=== PATIENT | female | born 1970 | race African-American/Black ===

== ENCOUNTER 2016-10-17 18:09 | Emergency (ER) | payer MEDICAID ==
[~2016-10-17] VITALS: Ht 172.7 cm; Wt 85.3 kg
[~2016-10-17 18:09] MED LIST: ALBUTEROL SULF8.5 GM INH; AMOXICILLIN500 MG ORAL; AZITHROMYCIN250 MG ORAL; CYCLOBENZAPRINE10 MG ORAL; DEBROX15 M1 OT; HYDROCODON-ACE1 EA15 ORAL; PSEUDOEPHEDRINE30 MG PO; TRAMADOL HCL50 MG ORAL
[2016-10-17 18:30] VITALS: BP 136/91
[2016-10-17] MEDS ORDERED: GUAIFENESIN-CO118 M1 ORAL (19:38)
[2016-10-17] MEDS ORDERED: ZITHROMAX250 MG ORAL (19:38)
[2016-10-17 19:55] VITALS: BP 147/64
--- NOTE | 2016-10-18 11:10 | Diagnostic Imaging Report ---
Indication: Chest Pain Comparison: None A single view chest radiograph was obtained. Findings: Cardiomediastinal appearance is within normal limits for age. Pulmonary vascularity is appropriate. The diaphragmatic contour is smooth and costophrenic angles are sharp. No pleural effusions are identified. The bones are unremarkable. Cervical fusion hardware noted Impression: No acute findings
--- NOTE | 2016-10-19 07:21 | Emergency Room Report ---
History of Present Illness General Chief Complaint: Upper Respiratory Illness Source: Patient Present Illness HPI Patient is a 46-year-old female presented after increased cough and difficulty breathing. Patient had been sick for approximately one week. Patient had the previously had fever and subsequently got better and then began having fever again. The patient reported having some productive cough. She denied severe shortness of breath or severe chest pain. She had not been vomiting or having any diarrhea. Allergies: Coded Allergies: No Known Allergies (Unverified , 08/12/14) Patient History Now: No Reviewed Nursing Documentation: PMH: Agreed, PSxH: Agreed Nursing Documentation-PMH Past Medical History: No History, Except For Review of Systems All Other Systems: negative except mentioned in HPI Physical Exam Vital Signs Date Time Temp Pulse Resp B/P Pulse Ox O2 Delivery O2 Flow Rate FiO2 10/17/16 18:22 98.4 96 15 136/91 98 Room Air General Appearance: well appearing, no apparent distress, alert, GCS 15 Head: normocephalic, atraumatic ENT: hearing grossly normal, normal voice Neck: full range of motion, supple Respiratory: no respiratory distress, rhonchi, speaking full sentences Cardiovascular #1: regular rate, rhythm, no edema, no gallop, no JVD Gastrointestinal: non tender, soft, no mass, no organomegaly Musculoskeletal: normal inspection, digits/nails normal, no calf tenderness Neurologic: alert, oriented x3, responsive, java tech III-XII nml as tested, normal gait Psychiatric: normal inspection, judgement/insight normal, mood/affect normal Skin: no rash Medical Decision Making Diagnostic Impression: Primary Impression: Pneumonia ER Course Patient presented for cough. Differential diagnosis included but was not limited to bronchitis, pneumonia, pulmonary embolism, pericarditis, asthma, foreign body. A chest x-ray one view interpreted by me showed a right lung lower lobe infiltrate there is normal cardiac size there were no pleural effusions. Patient was given prescription for oral antibiotics due to pneumonia which is likely secondary infection from a previous viral infection. The patient is advised to follow up with primary care doctor in 1-2 days. Patient is advised to return if any worsening condition or if any changes in status that are concerning. Last Vital Signs Date Time Temp Pulse Resp B/P Pulse Ox O2 Delivery O2 Flow Rate FiO2 10/17/16 19:55 94 16 147/64 99 Room Air 10/17/16 18:30 98.4 Status: improved Disposition: HOME, SELF-CARE Condition: Stable Scripts Guaifenesin/Codeine Phos* (ROBITUSSIN AC*) 118 Ml Liquid 5 ML ORAL Q6H Y for For Cough, #118 ML 0 Refills Prov: Luis Carlos Carrillo 10/17/16 Azithromycin* (ZITHROMAX*) 250 Mg Tablet 250 MG ORAL DAILY, #6 TAB 0 Refills Take two tables once daily for 1 day, then one tablet once daily for 4 days. Prov: Luis Carlos Carrillo 10/17/16 Referrals: NON PHYSICIAN (PCP) Patient Instructions: Community-Acquired Pneumonia, Adult Luis Carlos Carrillo Oct 19, 2016 07:21
== END 2016-10-17 19:55 | disposition home or self-care (01) ==
LOC: EMR 19:50
DX: J18.9 Pneumonia, unspecified organism (principal)
CPT/HCPCS: 71010; 81025; 99283

== ENCOUNTER 2016-10-26 10:20 | Emergency (ER) | payer MEDICAID ==
[~2016-10-26] VITALS: Ht 172.7 cm; Wt 83.9 kg
[~2016-10-26 10:20] MED LIST changes: +GUAIFENESIN-CO118 M1 ORAL; +ZITHROMAX250 MG ORAL
[2016-10-26] MEDS ORDERED: LEVAQUIN500 MG ORAL (11:29)
[2016-10-26] MEDS ORDERED: PROMETH-CODEIN 65 ML PO (11:29)
[2016-10-26 11:30] VITALS: BP 148/95
[2016-10-26 11:46] VITALS: BP 148/95
--- NOTE | 2016-10-27 07:44 | Emergency Room Report ---
History of Present Illness General Chief Complaint: Upper Respiratory Illness Source: Patient Present Illness HPI Patient present with complaints of flulike symptoms ongoing since September Patient reports increased cough and congestion Runny nose Fore head and facial pressure Denies any chest pain denies any neck pain or photophobia Patient has some mild bodyaches Denies any rash Denies any recent travel Allergies: Coded Allergies: No Known Allergies (Unverified , 08/12/14) Patient History Past Medical History: see triage record Pertinent Family History: none Last Menstrual Period: last week Now: No Reviewed Nursing Documentation: PMH: Agreed, PSxH: Agreed Nursing Documentation-PMH Past Medical History: No History, Except For Review of Systems All Other Systems: negative except mentioned in HPI Physical Exam Vital Signs Date Time Temp Pulse Resp B/P Pulse Ox O2 Delivery O2 Flow Rate FiO2 10/26/16 10:33 98.4 91 20 153/107 100 Room Air Sp02 EP Interpretation: reviewed, normal General Appearance: well appearing, no apparent distress Head: normocephalic, atraumatic Eyes: bilateral eye EOMI, bilateral eye PERRL ENT: hearing grossly normal, TMs + canals normal, uvula midline, pharyngeal erythema, other - Clear rhinorrhea Neck: full range of motion, supple, no meningismus, no bony tend Respiratory: lungs clear, normal breath sounds, no rhonchi, no respiratory distress, no retraction, no accessory muscle use Cardiovascular #1: normal peripheral pulses, regular rate, rhythm, no edema, no gallop, no JVD, no murmur Gastrointestinal: normal bowel sounds, non tender, soft, no mass, no organomegaly, non-distended, no guarding, no hernia, no pulsatile mass, no rebound Musculoskeletal: normal inspection Neurologic: oriented x3, responsive, asset liability analyst III-XII nml as tested, motor strength/ tone normal, sensory intact Psychiatric: mood/affect normal Skin: normal color, no rash, warm/dry, palpation normal Lymphatic: normal inspection, no adenopathy Medical Decision Making Diagnostic Impression: Primary Impression: Upper respiratory infection ER Course Patient's findings appear to be in line with flulike symptoms patient's respirations are appropriate has URI component At this time the patient will have symptomatic attempt for outpatient care Last Vital Signs Date Time Temp Pulse Resp B/P Pulse Ox O2 Delivery O2 Flow Rate FiO2 10/26/16 11:46 98.2 85 16 148/95 100 Room Air Status: unchanged Disposition: HOME, SELF-CARE Condition: Stable Scripts Promethazine HCl/Codeine (Prometh-Codein 6.25-10 mg/5 ml) 5 Ml Syrup 5 ML PO QHS for 5 Days, ML Prov: JANEEN KAMARA D.O. 10/26/16 Levofloxacin* (LEVAQUIN*) 500 Mg Tablet 500 MG ORAL DAILY for 7 Days, TAB Prov: JANEEN KAMARA D.O. 10/26/16 Referrals: [facility],REFERRING (PCP) Patient Instructions: Upper Respiratory Infection, Adult Additional Instructions: Patient is provided with the discharge instructions notified to follow up with primary doctor in the next 2-3 days otherwise return to the er with any worsening symptoms. JANEEN KAMARA D.O. Oct 27, 2016 07:44
== END 2016-10-26 11:46 | disposition home or self-care (01) ==
LOC: EMR 11:20
DX: J06.9 Acute upper respiratory infection, unspecified (principal)
CPT/HCPCS: 99282

== ENCOUNTER 2018-02-09 10:42 | Emergency (ER) | payer MEDICAID ==
[~2018-02-09] VITALS: Ht 170.2 cm; Wt 86.2 kg
[~2018-02-09 10:42] MED LIST changes: +LEVAQUIN500 MG ORAL; +PROMETH-CODEIN 65 ML PO
[2018-02-09] MEDS ORDERED: BUPROPION XL300 MG ORAL (10:57)
[2018-02-09 11:07] LABS: APPEARANCE,URINE CLEAR; BILIRUBIN, URINE NEGATIVE (NEGATIVE); COLOR,URINE PALE YELLOW; GLUCOSE, URINE (UA) NEGATIVE (NEGATIVE); KETONES,URINE NEGATIVE (NEGATIVE); LEUKOCYTE ESTERASE ,URINE NEGATIVE (NEGATIVE); NITRITE,URINE NEGATIVE (NEGATIVE); PH,URINE 6 (4.5-8.0); PROTEIN,URINE NEGATIVE (NEGATIVE); UROBILINOGEN,URINE NORMAL MG/DL (0.0-1.0)
--- NOTE | 2018-02-09 11:08 | Emergency Room Report ---
History of Present Illness General Chief Complaint: Female Urogenital Problems Source: Patient Present Illness HPI Patient presents with 3 weeks of dysuria. She had 3 pills of amoxicillin and took the last one last night. She's also been taking Azo. She still has dysuria and decreased urine flow. She's been increasing her he fluid intake. She felt feverish last night. She also complains about congestion and ear pain worse on the right. There is also itching there was some decreased hearing. She denies any sore throat or cough. Her last period was ending yesterday. It was normal for her. She doesn't believe she is . She denies any vaginal discharge. The patient is recovering from spine fusion surgery and is still on disability. She is still receiving physical therapy. Allergies: Coded Allergies: No Known Allergies (Unverified , 08/12/14) Patient History Past Medical History: see triage record Past Surgical History: other - Spine fusion Social History: Denies: smoking Social History Narrative disabled from spine surgery Now: No Reviewed Nursing Documentation: PMH: Agreed; PSxH: Agreed Nursing Documentation-PMH Past Medical History: No History, Except For Review of Systems All Other Systems: negative except mentioned in HPI Physical Exam Vital Signs Date Time Temp Pulse Resp B/P (MAP) Pulse Ox O2 Delivery O2 Flow Rate FiO2 02/09/18 10:49 98.5 86 18 151/100 98 Room Air 98.4 Sp02 EP Interpretation: reviewed, normal General Appearance: well appearing, no apparent distress Head: normocephalic, atraumatic Eyes: bilateral eye normal inspection, bilateral eye PERRL ENT: hearing grossly normal, normal pharynx, normal voice, other - mild erythema R TM Neck: full range of motion, supple Respiratory: no respiratory distress, speaking full sentences Gastrointestinal: normal inspection Genitourinary: no CVA tenderness, adnexa normal, ext genitalia/vag normal, os closed - nodular cervix, min d/c, uterus normal - no CMT, other - bladder tenderness Musculoskeletal: back normal, no calf tenderness Neurologic: alert, normal gait, grossly normal Psychiatric: mood/affect normal Skin: no rash Medical Decision Making Diagnostic Impression: Primary Impression: Dysuria Additional Impression: Otitis media Qualified Codes: H66.001 - Acute suppurative otitis media without spontaneous rupture of ear drum, right ear ER Course Patient presents with dysuria. She's recently taken amoxicillin. This may sterilize the urine. She needs to have a urinalysis and test done. She'll be treated with Keflex which will cover both the ears and the urine, Tylenol and Sudafed until we get the test back. Urine clear. Labs ordered. Pelvic done. Etiology of dysuria unclear. Will treat otitis with keflex and treat dysuria with pyridium. Improved with treatment. Advised to f/u with [facility]. Patient stable for outpatient observation and treatment. Laboratory Tests Test 02/09/18 10:00 02/09/18 10:15 02/09/18 11:40 Urine Color Pale yellow Urine Appearance Clear Urine pH 6 (4.5-8.0) Urine Specific [place] 1.010 (1.005-1.035) Urine Protein Negative (NEGATIVE) Urine Glucose (UA) Negative (NEGATIVE) Urine Ketones Negative (NEGATIVE) Urine Occult Blood Negative (NEGATIVE) Urine Nitrite Negative (NEGATIVE) Urine Bilirubin Negative (NEGATIVE) Urine Urobilinogen Normal MG/DL (0.0-1.0) Urine Leukocyte Esterase Negative (NEGATIVE) Urine HCG, Qualitative Negative (NEGATIVE) White Blood Count 5.3 K/UL (4.8-10.8) Red Blood Count 4.02 M/UL (4.20-5.40) L Hemoglobin 12.7 G/DL (12.0-16.0) Hematocrit 36.5 % (37.0-47.0) L Mean Corpuscular Volume 91 FL (80-99) Mean Corpuscular Hemoglobin 31.6 PG (27.0-31.0) H Mean Corpuscular Hemoglobin Concent 34.8 G/DL (32.0-36.0) Red Cell Distribution Width 11.3 % (11.6-14.8) L Platelet Count 346 K/UL (150-450) Mean Platelet Volume 7.0 FL (6.5-10.1) Neutrophils (%) (Auto) 61.3 % (45.0-75.0) Lymphocytes (%) (Auto) 31.2 % (20.0-45.0) Monocytes (%) (Auto) 6.0 % (1.0-10.0) Eosinophils (%) (Auto) 0.7 % (0.0-3.0) Basophils (%) (Auto) 0.8 % (0.0-2.0) Sodium Level 138 MMOL/L (136-145) Potassium Level 4.0 MMOL/L (3.5-5.1) Chloride Level 105 MMOL/L (98-107) Carbon Dioxide Level 24 MMOL/L (21-32) Anion Gap 9 mmol/L (5-15) Blood Urea Nitrogen 10 mg/dL (7-18) Creatinine 0.9 MG/DL (0.55-1.30) Estimate Glomerular Filtration Rate > 60 mL/min (>60) Glucose Level 118 MG/DL (74-106) H Calcium Level 8.6 MG/DL (8.5-10.1) Total Bilirubin 0.3 MG/DL (0.2-1.0) Aspartate Amino Transferase (AST) 18 U/L (15-37) Alanine Aminotransferase (ALT) 26 U/L (12-78) Alkaline Phosphatase 56 U/L (46-116) Total Protein 7.5 G/DL (6.4-8.2) Albumin 3.8 G/DL (3.4-5.0) Globulin 3.7 g/dL Albumin/Globulin Ratio 1.0 (1.0-2.7) Last Vital Signs Date Time Temp Pulse Resp B/P (MAP) Pulse Ox O2 Delivery O2 Flow Rate FiO2 02/09/18 13:06 98.5 75 18 145/89 98 Room Air 98.5 Status: improved Disposition: HOME, SELF-CARE Condition: Improved Scripts Ibuprofen* (MOTRIN*) 600 Mg Tablet 600 MG ORAL Q6H PRN for For Pain, #20 TAB Prov: Juanito Paez M.D. 02/09/18 Phenazopyridine Hcl* (PYRIDIUM*) 100 Mg Tablet 100 MG ORAL THREE TIMES A DAY, #9 TAB Prov: Juanito Paez M.D. 02/09/18 Cephalexin* (KEFLEX*) 500 Mg Capsule 500 MG ORAL EVERY 6 HOURS, #28 CAP Prov: Juanito Paez M.D. 02/09/18 Juanito Paez M.D. February 09, 2018 11:08
[2018-02-09] MEDS ORDERED: Pseudoephedrine 30mg tab ORAL ONE (11:15)
[2018-02-09] MEDS ORDERED: Cephalexin 500mg cap ORAL ONE (11:15)
[2018-02-09 11:54] LABS: BASOPHILS % (AUTO) 0.8 % (0.0-2.0); EOSINOPHILS % (AUTO) 0.7 % (0.0-3.0); HEMATOCRIT 36.5 % (37.0-47.0); HEMOGLOBIN 12.7 G/DL (12.0-16.0); LYMPHOCYTES % (AUTO) 31.2 % (20.0-45.0); MEAN CORPUSCULAR VOLUME 91 FL (80-99); NEUTROPHILS % (AUTO) 61.3 % (45.0-75.0); PLATELET COUNT 346 K/UL (150-450); RED BLOOD COUNT 4.02 M/UL (4.20-5.40); RED CELL DISTRIBUTION WIDTH 11.3 % (11.6-14.8); WHITE BLOOD COUNT 5.3 K/UL (4.8-10.8)
[2018-02-09 12:30] LABS: ANION GAP 9 mmol/L (5-15); BLOOD UREA NITROGEN 10 mg/dL (7-18); CALCIUM 8.6 MG/DL (8.5-10.1); CARBON DIOXIDE 24 MMOL/L (21-32); CHLORIDE 105 MMOL/L (98-107); CREATININE 0.9 MG/DL (0.55-1.30); SODIUM 138 MMOL/L (136-145)
[2018-02-09 12:43] LABS: ALANINE AMINOTRANSFERASE 26 U/L (12-78); ALBUMIN 3.8 G/DL (3.4-5.0); ALKALINE PHOSPHATASE 56 U/L (46-116); ASPARTATE AMINO TRANSFERASE 18 U/L (15-37); BILIRUBIN,TOTAL 0.3 MG/DL (0.2-1.0)
[2018-02-09 13:01] VITALS: BP 145/89
[2018-02-09] MEDS ORDERED: PHENAZOPYRIDIN100 MG ORAL (13:03)
[2018-02-09] MEDS ORDERED: IBUPROFEN600 MG ORAL (13:03)
[2018-02-09] MEDS ORDERED: CEPHALEXIN500 MG ORAL (13:03)
[2018-02-09 13:06] VITALS: BP 145/89
== END 2018-02-09 13:10 | disposition home or self-care (01) ==
LOC: EMR 11:32
DX: R30.0 Dysuria (principal); H66.91 Otitis media, unspecified, right ear
CPT/HCPCS: 36415; 80053; 81003; 81025; 85025; 87070; 87210; 99284

== ENCOUNTER 2018-07-06 08:05 | Emergency (ER) | payer MEDICARE, MEDICAID ==
[~2018-07-06] VITALS: Ht 172.7 cm; Wt 86.2 kg
[~2018-07-06 08:05] MED LIST changes: +BUPROPION XL300 MG ORAL; +CEPHALEXIN500 MG ORAL; +IBUPROFEN600 MG ORAL; +PHENAZOPYRIDIN100 MG ORAL
--- NOTE | 2018-07-06 08:32 | Emergency Room Report ---
History of Present Illness General Chief Complaint: General Complaint Source: Patient, Medical Record Present Illness HPI Patient presents to the emergency department today complaining of generalized weakness dysuria and urinary frequency. Patient states that she has had bladder infections in the past and has improved on antibiotics. Over the last months she has progressively felt ill. She states that she feels brain fog weak and at times dehydrated. She also states that she is up all night urinating. She also feels very anxious. Patient does have a history of depression. She denies suicidal or homicidal ideation. No auditory or visual hallucinations. No other modifying factors. No other associated signs and symptoms. No other complaints were noted. Allergies: Coded Allergies: No Known Allergies (Unverified , 08/12/14) Patient History Past Medical History: other - Depression Past Surgical History: none Pertinent Family History: none Social History: Denies: smoking, alcohol use, drug use Last Menstrual Period: 06/20/18 Reviewed Nursing Documentation: PMH: Agreed; PSxH: Agreed Nursing Documentation-PMH Past Medical History: No History, Except For Review of Systems All Other Systems: negative except mentioned in HPI Physical Exam Vital Signs Date Time Temp Pulse Resp B/P (MAP) Pulse Ox O2 Delivery O2 Flow Rate FiO2 07/06/18 08:09 97.9 83 16 158/99 99 Room Air 97.9 Sp02 EP Interpretation: reviewed, normal General Appearance: normal inspection, well appearing, no apparent distress, alert Head: atraumatic Eyes: bilateral eye normal inspection ENT: normal ENT inspection, hearing grossly normal, normal voice Neck: normal inspection, full range of motion, supple, no bony tend Respiratory: normal inspection, lungs clear, normal breath sounds, no respiratory distress, no retraction, no wheezing Cardiovascular #1: regular rate, rhythm, no edema Gastrointestinal: normal inspection, normal bowel sounds, non tender, soft, no guarding, no hernia Genitourinary: no CVA tenderness Musculoskeletal: normal inspection, back normal, normal range of motion Neurologic: normal inspection, alert, responsive, speech normal Psychiatric: normal inspection, judgement/insight normal, mood/affect normal Skin: normal inspection, normal color, no rash Medical Decision Making Diagnostic Impression: Primary Impression: Dysuria Additional Impressions: Fatigue Urinary frequency ER Course Patient presents emergency department today complaining of dysuria urinary frequency and fatigue. Differential considerations include acute Lexxel abnormality, hypothyroidism, UTI, bladder spasm just to name a few. Patient also has history of depression. Patient however denies any suicidal homicidal ideation. She does complain of fatigue.Given the severity of the patient's presentation I felt this is a highly complex patient. This patient required extensive workup. Patient's laboratory workup was negative. TSH levels were normal urine was negative for infection. Given the patient had a completely negative workup I feel the patient can be discharged home. I felt that antibiotics would be inappropriate at this time. I felt the patient's symptoms could be secondary to bladder spasms patient was given a prescription for Pyridium. Recommend close outpatient follow-up. Patient states that she has difficulty sleeping at times and is anxious I felt that perhaps a trial of Xanax would help. She is advised to follow with her psychiatrist.Patient is advised to follow up with primary doctor in 2-3 days and return the emergency room for any worsening symptoms and as needed. Labs Test 07/06/18 08:25 07/06/18 08:30 Urine Color Pale yellow Urine Appearance Clear Urine pH 5 (4.5-8.0) Urine Specific [place] 1.010 (1.005-1.035) Urine Protein Negative (NEGATIVE) Urine Glucose (UA) Negative (NEGATIVE) Urine Ketones Negative (NEGATIVE) Urine Blood Negative (NEGATIVE) Urine Nitrite Negative (NEGATIVE) Urine Bilirubin Negative (NEGATIVE) Urine Urobilinogen Normal MG/DL (0.0-1.0) Urine Leukocyte Esterase Negative (NEGATIVE) Urine HCG, Qualitative Negative (NEGATIVE) White Blood Count 7.1 K/UL (4.8-10.8) Red Blood Count 4.43 M/UL (4.20-5.40) Hemoglobin 13.2 G/DL (12.0-16.0) Hematocrit 40.0 % (37.0-47.0) Mean Corpuscular Volume 90 FL (80-99) Mean Corpuscular Hemoglobin 29.7 PG (27.0-31.0) Mean Corpuscular Hemoglobin Concent 33.0 G/DL (32.0-36.0) Red Cell Distribution Width 11.4 % (11.6-14.8) Platelet Count 376 K/UL (150-450) Mean Platelet Volume 6.8 FL (6.5-10.1) Neutrophils (%) (Auto) 60.0 % (45.0-75.0) Lymphocytes (%) (Auto) 32.8 % (20.0-45.0) Monocytes (%) (Auto) 5.7 % (1.0-10.0) Eosinophils (%) (Auto) 0.8 % (0.0-3.0) Basophils (%) (Auto) 0.9 % (0.0-2.0) Sodium Level 137 MMOL/L (136-145) Potassium Level 3.9 MMOL/L (3.5-5.1) Chloride Level 103 MMOL/L (98-107) Carbon Dioxide Level 27 MMOL/L (21-32) Anion Gap 7 mmol/L (5-15) Blood Urea Nitrogen 12 mg/dL (7-18) Creatinine 1.0 MG/DL (0.55-1.30) Estimat Glomerular Filtration Rate > 60 mL/min (>60) Glucose Level 110 MG/DL (74-106) Calcium Level 9.1 MG/DL (8.5-10.1) Total Bilirubin 0.3 MG/DL (0.2-1.0) Aspartate Amino Transf (AST/SGOT) 13 U/L (15-37) Alanine Aminotransferase (ALT/SGPT) 21 U/L (12-78) Alkaline Phosphatase 67 U/L (46-116) Total Protein 7.7 G/DL (6.4-8.2) Albumin 3.8 G/DL (3.4-5.0) Globulin 3.9 g/dL Albumin/Globulin Ratio 1.0 (1.0-2.7) Lipase 101 U/L (73-393) Thyroid Stimulating Hormone (TSH) 1.930 uiU/mL (0.358-3.740) Last Vital Signs Date Time Temp Pulse Resp B/P (MAP) Pulse Ox O2 Delivery O2 Flow Rate FiO2 07/06/18 08:09 97.9 83 16 158/99 99 Room Air 97.9 Status: improved Disposition: HOME, SELF-CARE Condition: Stable Scripts Phenazopyridine Hcl* (PYRIDIUM*) 200 Mg Tablet 200 MG ORAL THREE TIMES A DAY, #14 TAB 0 Refills Prov: Aubrey Purvis MD 07/06/18 Alprazolam* (XANAX*) 0.5 Mg Tablet 0.5 MG ORAL TID PRN for PRN Agitation/Anxiety, #10 TAB 0 Refills Prov: Aubrey Purvis MD 07/06/18 Aubrey Purvis MD Jul 06, 2018 08:32
[2018-07-06 08:48] LABS: BASOPHILS % (AUTO) 0.9 % (0.0-2.0); EOSINOPHILS % (AUTO) 0.8 % (0.0-3.0); HEMOGLOBIN 13.2 G/DL (12.0-16.0); LYMPHOCYTES % (AUTO) 32.8 % (20.0-45.0); MEAN CORPUSCULAR VOLUME 90 FL (80-99); MONOCYTES % (AUTO) 5.7 % (1.0-10.0); PLATELET COUNT 376 K/UL (150-450); RED BLOOD COUNT 4.43 M/UL (4.20-5.40); RED CELL DISTRIBUTION WIDTH 11.4 % (11.6-14.8); WHITE BLOOD COUNT 7.1 K/UL (4.8-10.8)
[2018-07-06 08:51] LABS: APPEARANCE,URINE CLEAR; BILIRUBIN, URINE NEGATIVE (NEGATIVE); COLOR,URINE PALE YELLOW; GLUCOSE, URINE (UA) NEGATIVE (NEGATIVE); KETONES,URINE NEGATIVE (NEGATIVE); LEUKOCYTE ESTERASE ,URINE NEGATIVE (NEGATIVE); NITRITE,URINE NEGATIVE (NEGATIVE); PH,URINE 5 (4.5-8.0); PROTEIN,URINE NEGATIVE (NEGATIVE); UROBILINOGEN,URINE NORMAL MG/DL (0.0-1.0)
[2018-07-06 08:56] VITALS: BP 158/99
[2018-07-06 08:58] LABS: ANION GAP 7 mmol/L (5-15); BLOOD UREA NITROGEN 12 mg/dL (7-18); CALCIUM 9.1 MG/DL (8.5-10.1); CARBON DIOXIDE 27 MMOL/L (21-32); CHLORIDE 103 MMOL/L (98-107); POTASSIUM 3.9 MMOL/L (3.5-5.1); SODIUM 137 MMOL/L (136-145)
[2018-07-06 09:11] LABS: ALANINE AMINOTRANSFERASE 21 U/L (12-78); ALBUMIN 3.8 G/DL (3.4-5.0); ALKALINE PHOSPHATASE 67 U/L (46-116); ASPARTATE AMINO TRANSFERASE 13 U/L (15-37); BILIRUBIN,TOTAL 0.3 MG/DL (0.2-1.0)
[2018-07-06] MEDS ORDERED: PHENAZOPYRIDIN200 MG ORAL (09:32)
[2018-07-06] MEDS ORDERED: XANAX0.5 MG ORAL (09:32)
[2018-07-06 09:39] VITALS: BP 148/89
[2018-07-06 09:40] VITALS: BP 148/89
== END 2018-07-06 09:41 | disposition home or self-care (01) ==
LOC: EMR 08:25
DX: R30.0 Dysuria (principal); R53.83 Other fatigue; R33.9 Retention of urine, unspecified
CPT/HCPCS: 36415; 80053; 81003; 81025; 83690; 84443; 85025; 99284

== ENCOUNTER → 2018-11-11 | Emergency (ER) | payer MEDICARE, MEDICAID ==
[~2018-11-11] VITALS: Ht 172.7 cm; Wt 90.7 kg
[~2018-11-11] MED LIST changes: +Aspirin Baby 81mg ORAL ONE; +Ketorolac 30mg Inj IV ONE; +LIPITOR40 MG ORAL; +PHENAZOPYRIDIN200 MG ORAL; +XANAX0.5 MG ORAL
[2018-11-11 21:45] VITALS: BP 161/95
--- NOTE | 2018-11-11 22:05 | Emergency Room Report ---
History of Present Illness General Chief Complaint: Chest Pain Source: Patient Present Illness HPI This is a 48-year-old female with history of hyperlipidemia and anxiety. She presents with chief complaint of chest pain. Onset yesterday. Is achy pain. Worse with inspiration. No nausea no vomiting. No fever chills but no radiation of the pain. Pain is localized across her chest. She is getting over a URI symptoms. She just finished a course of antibiotics but she still have some coughing but nonproductive in nature. Allergies: Coded Allergies: No Known Allergies (Unverified , 08/12/14) Patient History Past Medical History: see triage record, old chart reviewed Past Surgical History: none Pertinent Family History: none Social History: Denies: smoking Last Menstrual Period: 11/03/2018 Now: No Immunizations: other Reviewed Nursing Documentation: PMH: Agreed; PSxH: Agreed Nursing Documentation-PMH Past Medical History: No History, Except For Review of Systems Eye: Denies: eye pain, blurred vision ENT: Denies: ear pain, nose congestion, throat swelling Respiratory: Reports: cough; Denies: shortness of breath Cardiovascular: Reports: chest pain; Denies: palpitations Gastrointestinal: Denies: abdominal pain, diarrhea, nausea, vomiting Musculoskeletal: Denies: back pain, joint pain Skin: Denies: rash Neurological: Denies: headache, numbness Endocrine: Denies: increased thirst, increased urine Hematologic/Lymphatic: Denies: easy bruising All Other Systems: negative except mentioned in HPI Physical Exam Vital Signs Date Time Temp Pulse Resp B/P (MAP) Pulse Ox O2 Delivery O2 Flow Rate FiO2 11/11/18 21:39 99.0 110 16 161/95 99 Room Air vitals with high blood pressure Sp02 EP Interpretation: reviewed, normal General Appearance: well appearing, no apparent distress, alert Head: normocephalic, atraumatic Eyes: bilateral eye PERRL, bilateral eye EOMI ENT: hearing grossly normal, normal pharynx Neck: full range of motion, supple, no meningismus Respiratory: chest non-tender, lungs clear, normal breath sounds Cardiovascular #1: regular rate, rhythm, no murmur Gastrointestinal: normal bowel sounds, non tender, no mass, no organomegaly, no bruit, non-distended Musculoskeletal: back normal, gait/station normal, normal range of motion Psychiatric: mood/affect normal Skin: warm/dry Medical Decision Making Diagnostic Impression: Primary Impression: Chest pain Qualified Codes: R07.9 - Chest pain, unspecified EKG Diagnostic Results Rate: normal Rhythm: NSR ST Segments: no acute changes ASA given to the pt in ED: Yes Rhythm Strip Diag. Results EP Interpretation: yes Rate: 90 Rhythm: NSR, no PVC's, no ectopy Chest X-Ray Diagnostic Results Chest X-Ray Diagnostic Results : Chest X-Ray Ordered: Yes # of Views/Limited/Complete: 1 View Indication: Chest Pain EP Interpretation: Yes Interpretation: no consolidation, no effusion, no pneumothorax, no acute cardiopulmonary disease Impression: No acute disease Electronically Signed by: Clay Oneill MD Last Vital Signs Date Time Temp Pulse Resp B/P (MAP) Pulse Ox O2 Delivery O2 Flow Rate FiO2 11/11/18 21:39 99.0 110 16 161/95 99 Room Air Status: improved Disposition: HOME, SELF-CARE Condition: Stable Scripts Ibuprofen* (MOTRIN*) 600 Mg Tablet 600 MG ORAL THREE TIMES A DAY, #30 TAB 0 Refills Prov: Clay Oneill MD 11/11/18 Patient Instructions: Nonspecific Chest Pain Additional Instructions: Follow up with your doctor in 7 days. Return if worse. Clay Oneill MD Nov 11, 2018 22:05
[2018-11-11 22:29] LABS: BASOPHILS % (AUTO) 0.9 % (0.0-2.0); EOSINOPHILS % (AUTO) 0.6 % (0.0-3.0); HEMATOCRIT 36.6 % (37.0-47.0); HEMOGLOBIN 12.6 G/DL (12.0-16.0); LYMPHOCYTES % (AUTO) 35.6 % (20.0-45.0); MEAN CORPUSCULAR VOLUME 89 FL (80-99); MONOCYTES % (AUTO) 4.6 % (1.0-10.0); NEUTROPHILS % (AUTO) 58.2 % (45.0-75.0); PLATELET COUNT 374 K/UL (150-450); RED CELL DISTRIBUTION WIDTH 10.6 % (11.6-14.8); WHITE BLOOD COUNT 8.7 K/UL (4.8-10.8)
[2018-11-11 22:40] LABS: ANION GAP 11 mmol/L (5-15); BLOOD UREA NITROGEN 12 mg/dL (7-18); CALCIUM 8.9 MG/DL (8.5-10.1); CARBON DIOXIDE 23 MMOL/L (21-32); CHLORIDE 107 MMOL/L (98-107); SODIUM 141 MMOL/L (136-145)
--- NOTE | 2018-11-11 22:44 | Diagnostic Imaging Report ---
EXAM: XR Chest, 1 View CLINICAL HISTORY: CP TECHNIQUE: Frontal view of the chest. COMPARISON: No relevant prior studies available. FINDINGS: Lungs: Unremarkable. No consolidation. Pleural space: Unremarkable. No pneumothorax. Heart: Unremarkable. No cardiomegaly. Mediastinum: Unremarkable. Bones/joints: Status post plate and screw fixation of the anterior lower cervical spine. IMPRESSION: No radiographic evidence of acute cardiopulmonary disease. No pneumothorax.
[2018-11-11 22:55] LABS: ALANINE AMINOTRANSFERASE 26 U/L (12-78); ALBUMIN 3.7 G/DL (3.4-5.0); ALBUMIN/GLOBULIN RATIO 1.1 (1.0-2.7); ALKALINE PHOSPHATASE 68 U/L (46-116); ASPARTATE AMINO TRANSFERASE 17 U/L (15-37); BILIRUBIN,TOTAL 0.3 MG/DL (0.2-1.0); CKMB 0.5 NG/ML (0.0-3.6); CREATINE KINASE 64 U/L (26-308)
[2018-11-11 23:10] VITALS: BP 151/92
== END | disposition home or self-care (01) ==
LOC: EMR 22:00
DX: R07.9 Chest pain, unspecified (principal); E78.5 Hyperlipidemia, unspecified; F41.9 Anxiety disorder, unspecified
CPT/HCPCS: 36415; 71045; 80053; 82550; 82553; 84484; 85025; 93005; 96374; 99284; J1885

== ENCOUNTER 2018-12-07 13:24 | Emergency (ER) | payer MEDICARE, MEDICAID ==
[~2018-12-07] VITALS: Ht 172.7 cm; Wt 89.8 kg
[~2018-12-07 13:24] MED LIST changes: -Aspirin Baby 81mg ORAL ONE; -Ketorolac 30mg Inj IV ONE
[2018-12-07 13:44] VITALS: BP 144/86
--- NOTE | 2018-12-07 13:44 | NUR ---
ED Nurse Note: Pt came in due to sharp localized CP on her left chest started today. Denies hx of heart problems. Feels nauseated bu tno vomiting. Pt is AAO x4, ambulatory with non labored breathing. VSS.
--- NOTE | 2018-12-07 13:56 | Emergency Room Report ---
History of Present Illness General Chief Complaint: Chest Pain Source: Patient (Luis Carlos Carrillo MD) Present Illness HPI Patient is a 48-year-old female presented after increased chest discomfort. Patient reports having increased central chest discomfort worse with inspiration. Patient had previously had similar symptoms in the past. Pain was worse with movements and deep breaths. She denies any prior history of cardiac disease but has high cholesterol. She denies being a smoker. She is taking Wellbutrin for depression. (Luis Carlos Carrillo MD) Allergies: Coded Allergies: No Known Allergies (Unverified , 08/12/14) Patient History Past Medical History: see triage record Now: No Reviewed Nursing Documentation: PMH: Agreed; PSxH: Agreed (Luis Carlos Carrillo MD) Nursing Documentation-PMH Past Medical History: No History, Except For (Luis Carlos Carrillo MD) Review of Systems All Other Systems: negative except mentioned in HPI (Luis Carlos Carrillo MD) Physical Exam Vital Signs Date Time Temp Pulse Resp B/P (MAP) Pulse Ox O2 Delivery O2 Flow Rate FiO2 12/07/18 13:34 98.4 125 26 172/103 100 Room Air Sp02 EP Interpretation: reviewed, normal General Appearance: normal inspection, alert, GCS 15, mild distress Head: atraumatic ENT: normal ENT inspection, hearing grossly normal, normal voice Neck: normal inspection, full range of motion, supple, no bony tend Respiratory: normal inspection, lungs clear, normal breath sounds, no respiratory distress, no retraction, no wheezing Cardiovascular #1: no edema, tachycardia Gastrointestinal: normal inspection, normal bowel sounds, non tender, soft, no guarding, no hernia Genitourinary: no CVA tenderness Musculoskeletal: normal inspection, back normal, normal range of motion Neurologic: normal inspection, alert, oriented x3, responsive, knowledge analyst III-XII nml as tested, speech normal Psychiatric: normal inspection, judgement/insight normal, mood/affect normal Skin: normal inspection, normal color, no rash (Luis Carlos Carrillo MD) Medical Decision Making Diagnostic Impression: Primary Impression: Chest wall pain ER Course Patient present for chest pain. Differential diagnosis included but was not limited to acute coronary syndrome, pulmonary embolism, pneumonia, aortic dissection, shingles, pneumothorax, aortic dissection, esophageal rupture, pericarditis. Because of complexity of patient's case laboratory testing and imaging studies were ordered.Patient was noted to have some chest wall tenderness. Laboratory testing was ordered. EKG interpreted by me showed normal sinus rhythm without acute ST or T wave changes. Patient was given aspirin as well as medications for anxiety she does appear somewhat anxious. Patient was endorsed to Dr. Gupta pending CT imaging. (Luis Carlos Carrillo MD) ER Course Hospital Course 48-year-old F presents ED complaining of chest pain Clinical course Patient initially seen and evaluated by Dr. Carrillo please see his note for full history and physical labs reviewed- all electrolytes normal, troponins negative, no leukocytosis, hemoglobin/hematocrit stable, ddimer mildly elevated EKG - NSR, no acute ischemic changes interpreted by me Chest x-ray-no cardiomegaly, no rib fracture, no pneumothorax, no acute process CTA chest - no evidence of PE discussed custody findings with patient. Based on my evaluation her pain is midsternal and reproducible. Likely costochondritis. She has no cardiac risk factors. Likelihood of adverse coronary event the next 30 days is very low. Safe for discharge close outpatient follow-up. We'll provide referrals I. I feel this is a highly complex case requiring extensive working including EKG/Rhythm strip, Xray/CT/US, Blood/urine lab work, repeat exams while in ED, and administration of strong opiates/narcotics for pain control, admission to hospital or close patient follow up. Diagnosis - chest wall pain Stable and discharged to home with Rx Jamal Laguerre. Instructed to followup with PMD. Return to ED if symptoms recur or worsen Labs Test 12/07/18 14:15 12/07/18 15:00 White Blood Count 7.3 K/UL (4.8-10.8) Red Blood Count 4.11 M/UL (4.20-5.40) Hemoglobin 12.8 G/DL (12.0-16.0) Hematocrit 38.3 % (37.0-47.0) Mean Corpuscular Volume 93 FL (80-99) Mean Corpuscular Hemoglobin 31.0 PG (27.0-31.0) Mean Corpuscular Hemoglobin Concent 33.3 G/DL (32.0-36.0) Red Cell Distribution Width 11.5 % (11.6-14.8) Platelet Count 293 K/UL (150-450) Mean Platelet Volume 7.0 FL (6.5-10.1) Neutrophils (%) (Auto) 61.7 % (45.0-75.0) Lymphocytes (%) (Auto) 31.7 % (20.0-45.0) Monocytes (%) (Auto) 4.4 % (1.0-10.0) Eosinophils (%) (Auto) 0.6 % (0.0-3.0) Basophils (%) (Auto) 1.5 % (0.0-2.0) Prothrombin Time 10.4 SEC (9.30-11.50) Prothromb Time International Ratio 1.0 (0.9-1.1) Activated Partial Thromboplast Time 23 SEC (23-33) D-Dimer 1.08 mg/L FEU (0.00-0.49) Sodium Level 141 MMOL/L (136-145) Potassium Level 3.6 MMOL/L (3.5-5.1) Chloride Level 105 MMOL/L (98-107) Carbon Dioxide Level 23 MMOL/L (21-32) Anion Gap 13 mmol/L (5-15) Blood Urea Nitrogen 9 mg/dL (7-18) Creatinine 1.0 MG/DL (0.55-1.30) Estimat Glomerular Filtration Rate > 60 mL/min (>60) Glucose Level 106 MG/DL (74-106) Calcium Level 9.1 MG/DL (8.5-10.1) Total Bilirubin 0.4 MG/DL (0.2-1.0) Aspartate Amino Transf (AST/SGOT) 31 U/L (15-37) Alanine Aminotransferase (ALT/SGPT) 54 U/L (12-78) Alkaline Phosphatase 95 U/L (46-116) Total Creatine Kinase 89 U/L (26-308) Creatine Kinase MB < 0.5 NG/ML (0.0-3.6) Creatine Kinase MB Relative Index 0.5 Troponin I 0.000 ng/mL (0.000-0.056) Pro-B-Type Natriuretic Peptide 33 pg/mL (0-125) Total Protein 7.7 G/DL (6.4-8.2) Albumin 3.9 G/DL (3.4-5.0) Globulin 3.8 g/dL Albumin/Globulin Ratio 1.0 (1.0-2.7) Triglycerides Level 103 MG/DL (30-150) Cholesterol Level 178 MG/DL (< 200) LDL Cholesterol 100 mg/dL (<100) HDL Cholesterol 58 MG/DL (40-60) Cholesterol/HDL Ratio 3.1 (3.3-4.4) Urine Opiates Screen Negative (NEGATIVE) Urine Barbiturates Screen Negative (NEGATIVE) Phencyclidine (PCP) Screen Negative (NEGATIVE) Urine Amphetamines Screen Negative (NEGATIVE) Urine Benzodiazepines Screen Negative (NEGATIVE) Urine Cocaine Screen Negative (NEGATIVE) Urine Marijuana (THC) Screen Negative (NEGATIVE) Lab Results Impression (Zachery Gupta MD) EKG Diagnostic Results Rate: normal Rhythm: NSR ST Segments: no acute changes (Luis Carlos Carrillo MD) Rate: normal Rhythm: NSR ST Segments: no acute changes ASA given to the pt in ED: No (Zachery Gupta MD) Rhythm Strip Diag. Results EP Interpretation: yes Rhythm: NSR, no PVC's, no ectopy (Zachery Gupta MD) Chest X-Ray Diagnostic Results Chest X-Ray Diagnostic Results : Chest X-Ray Ordered: Yes # of Views/Limited/Complete: 1 View Indication: Chest Pain EP Interpretation: Yes Interpretation: no consolidation, no effusion, no pneumothorax, no acute cardiopulmonary disease Impression: No acute disease Electronically Signed by: Electronically signed by Zachery Gupta MD (Zachery Gupta MD) CT/MRI/US Diagnostic Results CT/MRI/US Diagnostic Results : Imaging Test Ordered: CTA Chest Impression no acute process. no PE. (Zachery Gupta MD) Last Vital Signs Date Time Temp Pulse Resp B/P (MAP) Pulse Ox O2 Delivery O2 Flow Rate FiO2 12/07/18 13:34 98.4 125 26 172/103 100 Room Air Status: improved (Luis Carlos Carrillo MD) Status: improved (Zachery Gupta MD) Disposition: HOME, SELF-CARE Condition: Stable Scripts Methocarbamol* (ROBAXIN-750*) 750 Mg Tablet 750 MG PO TID, #21 TAB 0 Refills Prov: Zachery Gupta MD 12/07/18 Ibuprofen* (MOTRIN*) 600 Mg Tablet 600 MG ORAL Q8H PRN for For Pain, #30 TAB 0 Refills Prov: Zachery Gupta MD 12/07/18 Luis Carlos Carrillo MD Dec 07, 2018 13:56 Zachery Gupta MD Dec 07, 2018 16:53
[2018-12-07] MEDS ORDERED: Aspirin Baby 81mg ORAL ONE (14:00)
[2018-12-07] MEDS ORDERED: LORazepam Inj 2mg/ml 1ml IV ONE (14:00)
[2018-12-07] MEDS ORDERED: Isovue-370 150ml vial INJ PRN (14:00)
--- NOTE | 2018-12-07 14:15 | NUR ---
ED Nurse Note: Blood and urine ssent. Daughter at the bed side.
[2018-12-07 14:50] LABS: BASOPHILS % (AUTO) 1.5 % (0.0-2.0); EOSINOPHILS % (AUTO) 0.6 % (0.0-3.0); HEMATOCRIT 38.3 % (37.0-47.0); HEMOGLOBIN 12.8 G/DL (12.0-16.0); LYMPHOCYTES % (AUTO) 31.7 % (20.0-45.0); MEAN CORPUSCULAR VOLUME 93 FL (80-99); MONOCYTES % (AUTO) 4.4 % (1.0-10.0); NEUTROPHILS % (AUTO) 61.7 % (45.0-75.0); PLATELET COUNT 293 K/UL (150-450); RED BLOOD COUNT 4.11 M/UL (4.20-5.40); RED CELL DISTRIBUTION WIDTH 11.5 % (11.6-14.8); WHITE BLOOD COUNT 7.3 K/UL (4.8-10.8)
[2018-12-07 15:00] LABS: ANION GAP 13 mmol/L (5-15); BLOOD UREA NITROGEN 9 mg/dL (7-18); CALCIUM 9.1 MG/DL (8.5-10.1); CARBON DIOXIDE 23 MMOL/L (21-32); CHLORIDE 105 MMOL/L (98-107); POTASSIUM 3.6 MMOL/L (3.5-5.1); SODIUM 141 MMOL/L (136-145)
[2018-12-07 15:11] LABS: ALANINE AMINOTRANSFERASE 54 U/L (12-78); ALBUMIN 3.9 G/DL (3.4-5.0); ALKALINE PHOSPHATASE 95 U/L (46-116); ASPARTATE AMINO TRANSFERASE 31 U/L (15-37); BILIRUBIN,TOTAL 0.4 MG/DL (0.2-1.0); CHOLESTEROL 178 MG/DL (< 200); CKMB < 0.5 NG/ML (0.0-3.6); CREATINE KINASE 89 U/L (26-308); HDL CHOLESTEROL 58 MG/DL (40-60); TRIGLYCERIDES 103 MG/DL (30-150)
--- NOTE | 2018-12-07 16:11 | Diagnostic Imaging Report ---
ndication: Chest pain Technique: IV administration nonionic contrast. Spiral acquisitions obtained from the lung bases to the lung apices. Multiplanar and 3-D reconstructions were generated. Total dose length product 1244.92 mGycm. CTDIvol(s) 35.35 mGy. Dose reduction achieved using automated exposure control Comparison: none Findings: Pulmonary arterial opacification is barely adequate. No intraluminal filling defects or other findings to suggest acute pulmonary embolus demonstrated. Normal caliber pulmonary arteries. No right ventricular dilatation demonstrated. Normal heart size. No evidence of thoracic aortic aneurysm or dissection. Normal appearance to the great neck vessels. Normal appearance to the proximal abdominal visceral vessels. Note accessory left renal artery. The lungs demonstrate minimal subpleural atelectatic changes on the left, are otherwise clear. No infiltrates, effusions, masses, or nodules. The heart size is normal. No mediastinal or hilar mass or adenopathy demonstrated. The included portions of the thyroid are unremarkable. No axillary or chest wall mass or adenopathy. There are bilateral subglandular breast implants in place. Some of the pittman are calcified, but they otherwise appear intact. The included upper abdominal viscera are unremarkable. There is an accessory splenule incidentally noted. Impression: Negative for acute pulmonary embolus or other acute pulmonary pathology Incidental finding of bilateral breast implants The CT scanner at [facility] is accredited by the [employer] and the scans are performed using protocols designed to limit radiation exposure to as low as reasonably achievable to attain images of sufficient resolution adequate for diagnostic evaluation.
[2018-12-07] MEDS ORDERED: Ketorolac 30mg Inj IV ONE (16:15)
--- NOTE | 2018-12-07 16:27 | Diagnostic Imaging Report ---
Indication: Chest pain Technique: One view of the chest Comparison: 11/11/2018 Findings: Lungs and pleural spaces are clear. Heart size is normal. Cervical spinal fusion hardware is again incidentally noted. No significant interim change Impression: No acute process
[2018-12-07 16:29] VITALS: BP 125/80
[2018-12-07] MEDS ORDERED: ROBAXIN-750750 MG PO (16:30)
[2018-12-07] MEDS ORDERED: IBUPROFEN600 MG ORAL (16:30)
[2018-12-07 16:39] VITALS: BP 125/80
--- NOTE | 2018-12-07 16:39 | NUR ---
ED Nurse Note: Pt cleared for discharge by ER MD. DC instructions/prescription was given and explained to pt and verbalized understanding of teachings. all medical devices such as ID band/IV removed. Pt is AAO x4, ambulatory and left with all perosnal belongings and left with her daughter.
== END 2018-12-07 16:40 | disposition home or self-care (01) ==
LOC: EMR 14:08
DX: R07.89 Other chest pain (principal)
CPT/HCPCS: 36415; 71045; 71275; 80053; 80061; 80307; 82550; 82553; 83880; 84484; 85025; 85379; 85610; 85730; 93005; 96361; 96374; 96375; 99284; J1885; Q9967

== ENCOUNTER 2020-08-30 22:13 | Emergency (ER) | payer MEDICAID, MEDICARE ==
[~2020-08-30] VITALS: Ht 172.7 cm; Wt 93.0 kg
[~2020-08-30 22:13] MED LIST changes: +ROBAXIN-750750 MG PO
[2020-08-30 22:20] VITALS: BP 183/105
--- NOTE | 2020-08-30 22:26 | NUR ---
ED Nurse Note: Pt ambulated to ED from home c/o Chest pressure radiating to L shoulder, denies injury, Pain started today, Pt reports some N, Pt placed on media monitor, EKG at bedside. Pt is A&Ox4.
--- NOTE | 2020-08-30 22:28 | Emergency Room Report ---
History of Present Illness General Chief Complaint: To Be Triaged Source: Patient, Medical Record Present Illness HPI This is a 50-year-old female with a history of hyperlipidemia. Unknown family history because she is adopted. Patient presents with chief complaint of chest pain. She was laying down and felt heaviness and numbness in her left arm. She then became concerned and developed chest pressure on the left side. No fever chills. Has slight nausea but no vomiting. No diarrhea. Also feeling dizzy and lightheaded. Has not take anything for this. No exertional component. No diaphoresis. Allergies: Coded Allergies: No Known Allergies (Unverified , 08/12/14) Patient History Past Medical History: see triage record, old chart reviewed Past Surgical History: none Pertinent Family History: none Social History: Denies: smoking Now: No Immunizations: other Reviewed Nursing Documentation: PMH: Agreed; PSxH: Agreed Review of Systems Eye: Denies: eye pain, blurred vision ENT: Denies: ear pain, nose congestion, throat swelling Respiratory: Denies: cough, shortness of breath Cardiovascular: Reports: chest pain; Denies: palpitations Gastrointestinal: Denies: abdominal pain, diarrhea, nausea, vomiting Musculoskeletal: Denies: back pain, joint pain Skin: Denies: rash Neurological: Denies: headache, numbness Endocrine: Denies: increased thirst, increased urine Hematologic/Lymphatic: Denies: easy bruising All Other Systems: negative except mentioned in HPI Physical Exam Vitals unremarkable Sp02 EP Interpretation: reviewed, normal General Appearance: well appearing, no apparent distress, alert Head: normocephalic, atraumatic Eyes: bilateral eye PERRL, bilateral eye EOMI ENT: hearing grossly normal, normal pharynx Neck: full range of motion, supple, no meningismus Respiratory: chest non-tender, lungs clear, normal breath sounds Cardiovascular #1: regular rate, rhythm, no murmur Gastrointestinal: normal bowel sounds, non tender, no mass, no organomegaly, no bruit, non-distended Musculoskeletal: back normal, normal range of motion, gait/station normal Psychiatric: anxious Medical Decision Making Diagnostic Impression: Primary Impression: Chest pain Qualified Codes: R07.9 - Chest pain, unspecified ER Course This patient presents with atypical chest pain. EKG normal. Troponin x2 is negative. I see no evidence of ACS, PE, dissection to name a few. Blood pressure elevated here. Patient said that her blood pressures always been normal. She has a machine at home which she checked. Will discharge home. EKG Diagnostic Results Troponin ordered: Yes Rate: normal Rhythm: NSR ST Segments: no acute changes ASA given to the pt in ED: Yes Rhythm Strip Diag. Results EP Interpretation: yes Rate: 99 Rhythm: NSR, no PVC's, no ectopy Chest X-Ray Diagnostic Results Chest X-Ray Diagnostic Results : Chest X-Ray Ordered: Yes # of Views/Limited/Complete: 1 View Indication: Chest Pain EP Interpretation: Yes Interpretation: no consolidation, no effusion, no pneumothorax, no acute cardiopulmonary disease Impression: No acute disease Electronically Signed by: Clay Oneill MD Status: improved Disposition: HOME, SELF-CARE Condition: Stable Additional Instructions: Follow-up with your doctor in 7 days. If symptoms continued, you may need referral to see refrigerator room clerk for stress test. Return if symptoms worsen. Clay Oneill MD Aug 30, 2020 22:28
[2020-08-30] MEDS ORDERED: Aspirin Baby 81mg ONE (22:29)
[2020-08-30] MEDS ORDERED: Aspirin Baby 81mg ORAL ONE (22:30)
--- NOTE | 2020-08-30 22:42 | NUR ---
ED Nurse Note: Xray at bedside
--- NOTE | 2020-08-30 22:46 | Diagnostic Imaging Report ---
EXAM: XR Chest, 1 View CLINICAL HISTORY: CP TECHNIQUE: Frontal view of the chest. COMPARISON: 11/11/2089. FINDINGS: Lungs: No consolidative change. Pleural space: No pneumothorax. No pleural effusion. Heart: Cardiomediastinal silhouette unremarkable. Mediastinum: See above. Bones/joints: Osteopenia. The ribs are grossly unremarkable. Thoracic spine is grossly unremarkable. Soft tissues: Bilateral breast prosthesis are noted in place. IMPRESSION: No active disease.
[2020-08-30 22:51] LABS: BASOPHILS % (AUTO) 0.7 % (0.0-2.0); HEMATOCRIT 39.7 % (37.0-47.0); HEMOGLOBIN 13.3 G/DL (12.0-16.0); LYMPHOCYTES % (AUTO) 39.2 % (20.0-45.0); MEAN CORPUSCULAR VOLUME 92 FL (80-99); MONOCYTES % (AUTO) 4.8 % (1.0-10.0); NEUTROPHILS % (AUTO) 54.2 % (45.0-75.0); PLATELET COUNT 316 K/UL (150-450); RED BLOOD COUNT 4.29 M/UL (4.20-5.40); RED CELL DISTRIBUTION WIDTH 11.5 % (11.6-14.8); WHITE BLOOD COUNT 7.4 K/UL (4.8-10.8)
[2020-08-30 22:57] LABS: APPEARANCE,URINE CLEAR; BILIRUBIN, URINE NEGATIVE (NEGATIVE); COLOR,URINE PALE YELLOW; GLUCOSE, URINE (UA) NEGATIVE (NEGATIVE); KETONES,URINE NEGATIVE (NEGATIVE); NITRITE,URINE NEGATIVE (NEGATIVE); PH,URINE 6 (4.5-8.0); PROTEIN,URINE NEGATIVE (NEGATIVE); UROBILINOGEN,URINE NORMAL MG/DL (0.0-1.0)
[2020-08-30 23:02] LABS: ANION GAP 8 mmol/L (5-15); BLOOD UREA NITROGEN 13 mg/dL (7-18); CARBON DIOXIDE 29 MMOL/L (21-32); CHLORIDE 105 MMOL/L (98-107); CREATININE 1.1 MG/DL (0.55-1.30); POTASSIUM 3.5 MMOL/L (3.5-5.1); SODIUM 142 MMOL/L (136-145)
[2020-08-30 23:06] LABS: LEUKOCYTE ESTERASE ,URINE 1+ (NEGATIVE)
[2020-08-30 23:07] LABS: ALANINE AMINOTRANSFERASE 19 U/L (12-78); ALBUMIN 4.1 G/DL (3.4-5.0); ALBUMIN/GLOBULIN RATIO 1.1 (1.0-2.7); ALKALINE PHOSPHATASE 77 U/L (46-116); ASPARTATE AMINO TRANSFERASE 14 U/L (15-37); BILIRUBIN,TOTAL 0.2 MG/DL (0.2-1.0)
[2020-08-31 00:17] VITALS: BP 132/77
[2020-08-31 01:00] VITALS: BP 132/77
--- NOTE | 2020-08-31 01:00 | NUR ---
ER DISCHARGE NOTE: Patient is cleared to be discharged per ERMD, pt is aox4, on room air, with stable vital signs. pt was given dc and prescription instructions, pt was able to verbalize understanding, pt id band and iv site removed without complications. pt is able to ambulate with steady gait. pt took all belongings.
--- NOTE | 2020-08-31 20:34 | Cardiology Report ---
APPROVED REPORT EKG Measurement Heart [id number] <Conclusion> Normal sinus rhythm Possible Left atrial enlargement Cannot rule out Anterior infarct, age undetermined Abnormal ECG
== END 2020-08-31 01:00 | disposition home or self-care (01) ==
LOC: EMR 22:29
DX: R07.9 Chest pain, unspecified (principal); R20.0 Anesthesia of skin; R11.0 Nausea; R42 Dizziness and giddiness
CPT/HCPCS: 36415; 71045; 80053; 81003; 84484; 85025; 93005; 96374; 99284; J2405